=== PATIENT | male | born 1985 | race Caucasian/White ===

== ENCOUNTER 2021-09-05 10:57 | Outpatient (RCR) | payer BC ==
[~2021-09-05 10:57] MED LIST: ADVIL LIQUI-GE200 MG PO; DECADRON 4MG TAB4 MG PO; MUCINEX D ER T1 EACH PO; QUALITY CHOICE PO; ZITHROMAX 250M250 MG PO
== END 2021-09-25 | disposition home or self-care (01) ==
LOC: PT
DX: M23.352 Other meniscus derangements, posterior horn of lateral meniscus, left knee (principal)

== ENCOUNTER 2021-09-26 14:47 | Outpatient (RCR) | payer BC | END 2021-10-01 17:00 | disposition home or self-care (01) | LOC: PT 14:47 | DX: M23.352 Other meniscus derangements, posterior horn of lateral meniscus, left knee (principal) ==